=== PATIENT | male | born 1970 | race African-American/Black ===

== ENCOUNTER 2017-10-24 20:46 | Emergency (ER) | payer SELFPAY ==
[~2017-10-24] VITALS: Ht 190.5 cm; Wt 145.1 kg
[2017-10-24] MEDS ORDERED: ACETAMINOPHEN/CODEINE 300MG - 30MG TAB PO ONE (22:00)
--- NOTE | 2017-10-25 00:01 | Diagnostic Imaging Report ---
EXAM: ELBOW LEFT COMPLETE, AP, lateral and oblique INDICATION: Fall, left elbow pain COMPARISON: None FINDINGS: BONES: No acute fractures. JOINTS: No malalignment. Mild degenerative changes of the elbow. SOFT TISSUES: Normal IMPRESSION: No left elbow fracture. Signed by: Dr. Beatrice Rodriguez M.D. on 10/24/2017 11:23 PM
--- NOTE | 2017-10-25 00:01 | Diagnostic Imaging Report ---
EXAM: SHOULDER RIGHT COMPLETE, AP internal and external rotation INDICATION: Right shoulder pain after fall COMPARISON: None FINDINGS: BONES: No acute fractures. Incidental normal variant of prominent conoid tubercle of the clavicle. JOINTS: No malalignment. Degenerative changes of the acromioclavicular joint. SOFT TISSUES: Normal IMPRESSION: No acute fracture or dislocation of the right shoulder. Signed by: Dr. Beatrice Rodriguez M.D. on 10/24/2017 11:22 PM
== END 2017-10-24 23:52 | disposition home or self-care (01) ==
LOC: ER 20:46
DX: S43.421A Sprain of right rotator cuff capsule, initial encounter (principal); S50.02XA Contusion of left elbow, initial encounter; W06.XXXA Fall from bed, initial encounter; Y93.84 Activity, sleeping; Y92.003 Bedroom of unspecified non-institutional (private) residence as the place of occurrence of the external cause; I10 Essential (primary) hypertension

== ENCOUNTER 2018-02-09 21:34 | Inpatient (IN) | payer SELFPAY ==
[~2018-02-09] VITALS: Ht 190.5 cm; Wt 145.1 kg
--- OUTSIDE RECORDS SUMMARY | 2018-02-09 21:37 | XMS REPORT ---
Author [facility] Address Unknown Phone Unavailable Care Team Providers Care [employer] Crewmember Name Role Phone Kinsey BARRAZA Unavailable Unavailable Problems This patient has no known problems. Allergies, Adverse Reactions, Alerts This patient has no known allergies or adverse reactions. Medications This patient has no known medications. Results Test Description Test Time Test Comments Text Results Atomic Results Result Comments ELBOW LEFT COMPLETE 2017-10-24 23:22:00 [place] [address] Patient Name: NILO MINOR MR #: [id number] : 1970 Age/Sex: 47/M Req #: [id number] Adm Physician: Ordered by: MARIAM BARRAZA MD Report #: [id number] Location: ER Room/Bed: Procedure: [id number] DX/ELBOW LEFT COMPLETE Exam Date: 10/24/17 Exam Time: 5 REPORT STATUS: Signed EXAM: ELBOW LEFT COMPLETE, AP, lateral and oblique INDICATION: Fall, left elbow pain COMPARISON: None FINDINGS: BONES: No acute fractures. JOINTS: No malalignment. Mild degenerative changes of the elbow. SOFT TISSUES: Normal IMPRESSION: No left elbow fracture. Signed by: Dr. Quang Tucker M.D. on 10/24/2017 11:23 PM Dictated By: QUANG TUCKER MD [id number] Transcribed By: VISH on 10/24/172322 COPY TO: MARIAM BARRAZA MD SHOULDER RIGHT COMPLETE 2017-10-24 23:16:00 [place] [address] Patient Name: NILO MINOR MR #: [id number] : 1970 Age/Sex: 47/M Req #: [id number] Adm Physician: Ordered by: MARIAM BARRAZA MD Report #: [id number] Location: ER Room/Bed: Procedure: [id number] DX/SHOULDER RIGHT COMPLETE Exam Date: 10/24/17 Exam Time: 2244 REPORT STATUS: Signed EXAM: SHOULDER RIGHT COMPLETE, AP internal and external rotation INDICATION: Right shoulder pain after fall COMPARISON: None FINDINGS: BONES: No acute fractures. Incidental normal variant of prominent conoid tubercle of the clavicle. JOINTS: No malalignment. Degenerative changes of the acromioclavicular joint. SOFT TISSUES: Normal IMPRESSION: No acute fracture or dislocation of the right shoulder. Signed by: Dr. Quang Tucker M.D. on 10/24/2017 11:22 PM Dictated By: QUANG TUCKER MD 21 Transcribed By: VISH on 10/24/172321 COPY TO: MARIAM BARRAZA MD
[2018-02-09] MEDS ORDERED: HYDRALAZINE HCL 20 MG/ML VIAL IV STA (22:02)
--- NOTE | 2018-02-09 22:41 | Diagnostic Imaging Report ---
EXAMINATION: CHEST SINGLE (PORTABLE) INDICATION: SOB, LE EDEMA COMPARISON: None FINDINGS: AP view TUBES and LINES: None. LUNGS: Lungs are well inflated. Interstitial opacities extending from the karen to the periphery. No focal consolidations. PLEURA: No significant pleural effusion. No pneumothorax. HEART AND MEDIASTINUM: Mild to moderate enlargement of the cardiac silhouette. BONES AND SOFT TISSUES: No acute osseous lesion. Soft tissues are unremarkable. UPPER ABDOMEN: No free air under the diaphragm. IMPRESSION: Cardiomegaly with mild interstitial edema. Signed by: DR. Robert Valle MD on 02/09/2018 10:38 PM
[2018-02-09 22:52] LABS: BASOPHILS % 0.6 % (0.0-1.0); EOSINOPHILS # (AUTO) 0.1 (0.0-0.4); EOSINOPHILS % 0.7 % (0.0-6.0); HEMATOCRIT 36.8 % (38.2-49.6); HEMOGLOBIN 10.9 g/dL (14.0-18.0); LYMPHOCYTES # (AUTO) 1.4 (1.0-3.2); LYMPHOCYTES % 19.2 % (18.0-39.1); MEAN CORPUSCULAR HEMOGLOBIN 24.5 pg (28-32); MEAN CORPUSCULAR HGB CONC 29.6 g/dL (31-35); MEAN CORPUSCULAR VOLUME 82.7 fL (81-99); MONOCYTES # (AUTO) 0.8 (0.2-0.8); MONOCYTES % 11.1 % (4.4-11.3); NEUTROPHILS # (AUTO) 4.8 (2.1-6.9); NEUTROPHILS % 68.1 % (38.7-80.0); PLATELET COUNT 299 x10e3/uL (140-360); RED BLOOD COUNT 4.45 x10e6/uL (4.3-5.7); RED CELL DISTRIBUTION WIDTH 20.2 % (11.7-14.4)
[2018-02-09 23:02] LABS: INR 1.3; PARTIAL THROMBOPLASTIN TIME 34.6 seconds (23.8-35.5); PROTHROMBIN TIME 17.3 seconds (11.9-14.5)
[2018-02-09 23:14] LABS: ALANINE AMINOTRANSFERASE 22 IU/L (0-55); ALBUMIN 2.5 g/dL (3.5-5.0); ALBUMIN/GLOBULIN RATIO 0.4 (0.8-2.0); ALKALINE PHOSPHATASE 162 IU/L (40-150); ANION GAP 13.8 mmol/L (8-16); BLOOD UREA NITROGEN 16 mg/dL (7-26); BUN/CREATININE RATIO 12 (6-25); CALCIUM 8.9 mg/dL (8.4-10.2); CARBON DIOXIDE 24 mmol/L (22-29); CHLORIDE 101 mmol/L (98-107); CREATINE KINASE 447 IU/L (30-200); CREATININE, SERUM 1.31 mg/dL (0.72-1.25); EST GLOMERULAR FILTRATION RATE > 60 ML/MIN (60-); GLUCOSE 89 mg/dL (74-118); MAGNESIUM 1.6 MG/DL (1.3-2.1); POTASSIUM 3.8 mmol/L (3.5-5.1); SODIUM 135 mmol/L (136-145)
[2018-02-09] MEDS ORDERED: FUROSEMIDE INJ 10 MG/ML 4 ML VIAL IV ONE (23:30)
[2018-02-10] MEDS ORDERED: HYDROCODONE/APAP 10MG-325MG TAB PO ONE
[2018-02-10] MEDS: NITROGLYCERIN 2% OINT 1 GM PKT TOP SCH ×4 (00:10→18:29)
[2018-02-10 00:53] LABS: BILIRUBIN,URINE 1+ (NEGATIVE); CLARITY,URINE SL CLOUDY (CLEAR); COLOR,URINE YELLOW (YELLOW); KETONES,URINE NEGATIVE (NEGATIVE); LEUKOCYTE ESTERASE ,URINE NEGATIVE (NEGATIVE); NITRITE,URINE NEGATIVE (NEGATIVE); PROTEIN,URINE DIPSTICK 2+ (NEGATIVE); URINE UROBILINOGEN 1 mg/dL (0.2 - 1)
[2018-02-10 00:54] LABS: BACTERIA,URINE MANY /HPF; EPITHELIAL CELLS,URINE FEW /LPF; HYALINE CASTS 0-1 (0-1); MUCUS,URINE FEW (RARE); WBC,URINE (MAN) 21-50 /HPF (0-5)
[2018-02-10] MEDS ORDERED: HYDRALAZINE HCL 20 MG/ML VIAL IV PRN (01:30)
[2018-02-10] MEDS ORDERED: MORPHINE SULFATE 2 MG/ML SYR IV PRN (01:30)
[2018-02-10] MEDS ORDERED: ASPIRIN 81 MG CHEW TAB PO ONE ×2 (01:30)
[2018-02-10] MEDS ORDERED: ONDANSETRON HCL INJ 2 MG/ML VIAL IV PRN (01:30)
[2018-02-10] MEDS ORDERED: CEFTRIAXONE SOD 1 GM VIAL IV SCH (02:00)
[2018-02-10] MEDS ORDERED: CEFTRIAXONE SOD 1 GM VIAL ONE (04:16)
--- NOTE | 2018-02-10 05:49 | History and Physical ---
Patient is a 47-year-old noncompliant obese gentleman who presents with shortness of breath, and was found to have hypertensive crisis, as well as new-onset CHF. He has an elevated BNP and pulmonary edema on chest x-ray. Currently, the patient states he is feeling better. He denies any chest pains. PAST MEDICAL HISTORY: Hypertension. MEDICATIONS: See MAR. ALLERGIES: TRAMADOL. SOCIAL HISTORY: Lives at home with his . Nonsmoker and nondrinker. FAMILY HISTORY: Hypertension. PHYSICAL EXAMINATION VITALS: 98.6, blood pressure of 156/90, pulse of 78, sats 99%. GENERAL: No apparent distress. Sitting up in bed. NECK: Supple. CARDIOVASCULAR: Regular rate and rhythm. LUNGS: Decreased breath sounds bilaterally. No wheezing or rhonchi. ABDOMEN: Obese, soft and nontender. EXTREMITIES: No clubbing or cyanosis. NEUROLOGICAL: Nonfocal. ASSESSMENT AND PLAN 1. Hypertensive crisis: Will continue with blood pressure medicines since the patient is doing better. 2. Urinary tract infection: Will continue Rocephin. Check cultures. 3. Congestive heart failure: Will do an echocardiogram and consult cardiology. Please see hospital chart for full details. Job#: [id number] CHICO
[2018-02-10 06:57] LABS: BASOPHILS % 0.3 % (0.0-1.0); EOSINOPHILS # (AUTO) 0.1 (0.0-0.4); EOSINOPHILS % 1.5 % (0.0-6.0); HEMATOCRIT 35.9 % (38.2-49.6); HEMOGLOBIN 10.7 g/dL (14.0-18.0); LYMPHOCYTES # (AUTO) 1.4 (1.0-3.2); LYMPHOCYTES % 22.9 % (18.0-39.1); MEAN CORPUSCULAR HEMOGLOBIN 24.8 pg (28-32); MEAN CORPUSCULAR HGB CONC 29.8 g/dL (31-35); MEAN CORPUSCULAR VOLUME 83.1 fL (81-99); MONOCYTES # (AUTO) 0.8 (0.2-0.8); MONOCYTES % 12.5 % (4.4-11.3); NEUTROPHILS # (AUTO) 3.8 (2.1-6.9); NEUTROPHILS % 62.5 % (38.7-80.0); PLATELET COUNT 295 x10e3/uL (140-360); RED BLOOD COUNT 4.32 x10e6/uL (4.3-5.7); RED CELL DISTRIBUTION WIDTH 20.2 % (11.7-14.4)
[2018-02-10 07:32] LABS: ALANINE AMINOTRANSFERASE 21 IU/L (0-55); ALBUMIN 2.3 g/dL (3.5-5.0); ALBUMIN/GLOBULIN RATIO 0.4 (0.8-2.0); ALKALINE PHOSPHATASE 147 IU/L (40-150); ANION GAP 12.4 mmol/L (8-16); BLOOD UREA NITROGEN 14 mg/dL (7-26); BUN/CREATININE RATIO 12 (6-25); CALCIUM 8.7 mg/dL (8.4-10.2); CARBON DIOXIDE 26 mmol/L (22-29); CHLORIDE 100 mmol/L (98-107); CREATININE, SERUM 1.15 mg/dL (0.72-1.25); EST GLOMERULAR FILTRATION RATE > 60 ML/MIN (60-); GLUCOSE 80 mg/dL (74-118); POTASSIUM 3.4 mmol/L (3.5-5.1); SODIUM 135 mmol/L (136-145)
[2018-02-10 07:39] LABS: CREATINE KINASE MB 4.7 ng/mL (0-5.0)
[2018-02-10] MEDS ORDERED: METOPROLOL TARTRATE 25 MG TAB PO SCH (08:00)
[2018-02-10] MEDS: FAMOTIDINE 20 MG/2 ML VIAL IV SCH ×2 (08:45→20:04)
[2018-02-10] MEDS: ASPIRIN 81 MG ENTERIC COATED PO SCH (08:45)
[2018-02-10] MEDS: CEFTRIAXONE SOD 1 GM/NS 50 ML 50 ML IV SCH (14:35)
[2018-02-10 15:41] LABS: CREATINE KINASE MB 4.7 ng/mL (0-5.0)
--- NOTE | 2018-02-10 15:46 | Consultation ---
DATE OF CONSULTATION: February 10, 2018 CARDIOLOGY CONSULTATION REASON FOR CONSULTATION: Heart failure. HISTORY OF PRESENT ILLNESS: This is a 47-year-old man with a history of hypertension, noncompliant with medications, and obesity, who presented to the emergency department with progressive worsening shortness of breath. The patient states over the last few weeks he has noticed he is more short of breath and unable to lay flat. He reports progressive lower extremity swelling, which has progressed into his scrotum and up to his thighs. Upon arrival here, the patient was noted to have pulmonary edema and an elevated BNP. He was started on Lasix. Echocardiogram shows a left ventricular ejection fraction of less than 20%. REVIEW OF SYSTEMS: A 12-point review of systems was conducted and discussed above in the HPI. PAST MEDICAL HISTORY: Hypertension, obesity, prior tobacco use. MEDICATIONS: See medication reconciliation form. PAST SURGICAL HISTORY: None recently reported. FAMILY HISTORY: No premature coronary artery disease or sudden cardiac . SOCIAL HISTORY: No current illicit drug use, alcohol use or tobacco use. ALLERGIES: TRAMADOL. PHYSICAL EXAMINATION VITAL SIGNS: 98.7, heart rate 71, respirations 18, blood pressure 134/84, oxygen saturation is 98% on room air. GENERAL: He is a well-appearing, obese male seated at the bedside. HEENT: Head is normocephalic and atraumatic. Eyes: Extraocular movements are intact. Conjunctivae are clear. NECK: No JVD. No bruits. CARDIOVASCULAR: Regular rate and rhythm. LUNGS: Diminished breath sounds at bilateral bases. Scattered rales. ABDOMEN: Obese, soft and nontender. EXTREMITIES: There is tense pitting edema up to the midthigh level with scrotal edema. VASCULAR: Diminished pulses. SKIN: Warm, dry and intact. NEUROLOGIC: No focal deficits noted. Cranial nerves are grossly intact. PSYCHIATRIC: Normal mood and affect. MEDICATIONS: Reviewed. LABORATORY DATA: Reviewed. Hemoglobin 10.7. Sodium 135, potassium 3.4, creatinine 1.15. Troponin is negative times 2. BNP is 1261. Chest x-ray shows cardiomegaly with mild interstitial pulmonary edema. IMPRESSION 1. Acute likely on chronic systolic congestive heart failure. 2. Hypertension. 3. Obesity. 4. Urinary tract infection. RECOMMENDATIONS: This patient was found to have severe reduction in his left ventricular systolic function with an estimated ejection fraction of less than 20%. Will increase Lasix to 40 mg IV q.[address] him on optimal medical therapy for his heart failure with carvedilol and lisinopril. The patient likely will benefit from Aldactone as well. May consider coronary angiography to evaluate for ischemic causes for his congestive heart failure. Will continue to monitor. Job#: [id number] RI
[2018-02-10] MEDS: CARVEDILOL 12.5 MG TAB PO SCH (15:51)
[2018-02-10] MEDS: FUROSEMIDE INJ 10 MG/ML 4 ML VIAL IV SCH (15:52)
[2018-02-10] MEDS ORDERED: MAGNESIUM OTC PO (17:33)
[2018-02-10] MEDS ORDERED: POTASSIUM OTC PO (17:33)
[2018-02-10 18:11] VITALS: BP 137/91
[2018-02-10 18:13] VITALS: BP 137/91
--- NOTE | 2018-02-10 18:24 | NUR ---
Received patient from ER, alert and responsive, sleepy, states he is tired as has not been able to sleep well while in the ER, VSS, some SOB on exertion, skin intact, by bedside, place on O2 2L protocol, no resp distress, oriented to room, call light within reach, denies any pains, will monitor
--- NOTE | 2018-02-10 19:06 | NUR ---
Patient alert and ambulatory in the room, offered O2 2L NC but patient refused, report given to on coming nurse and rounds completed.
--- NOTE | 2018-02-10 19:07 | NUR ---
received patient ambulating in room, stable condition. no needs voiced at this time. encouraged to call for help. will continue to monitor patient.
[2018-02-10] MEDS: MORPHINE SULFATE INJ 4 MG/ML INJ IV PRN (19:55)
[2018-02-10 20:00] VITALS: BP 129/78
[2018-02-10] MEDS ORDERED: FUROSEMIDE INJ 10 MG/ML 4 ML VIAL IV SCH (21:00)
[2018-02-10 22:00] VITALS: BP 129/78
[2018-02-11] VITALS (8 sets, daily range): BP systolic 108–152; BP diastolic 66–97
[2018-02-11] MEDS: FUROSEMIDE INJ 10 MG/ML 4 ML VIAL IV SCH ×4 (00:31→17:47)
[2018-02-11] MEDS: NITROGLYCERIN 2% OINT 1 GM PKT TOP SCH ×4 (00:32→17:47)
[2018-02-11] MEDS: MORPHINE SULFATE INJ 4 MG/ML INJ IV PRN (00:38)
[2018-02-11] MEDS ORDERED: SODIUM CHLORIDE 0.9% 100 ML 100 ML ONE (02:11)
[2018-02-11] MEDS: CEFTRIAXONE SOD 1 GM/NS 50 ML 50 ML IV SCH ×2 (02:20→14:38)
[2018-02-11 06:07] LABS: CHOL/HDL RATIO 3.1 (3.9-4.7)
[2018-02-11 06:24] LABS: ANION GAP 12.7 mmol/L (8-16); BLOOD UREA NITROGEN 15 mg/dL (7-26); BUN/CREATININE RATIO 13 (6-25); CALCIUM 8.5 mg/dL (8.4-10.2); CARBON DIOXIDE 27 mmol/L (22-29); CHLORIDE 102 mmol/L (98-107); CREATININE, SERUM 1.17 mg/dL (0.72-1.25); EST GLOMERULAR FILTRATION RATE > 60 ML/MIN (60-); GLUCOSE 83 mg/dL (74-118); POTASSIUM 3.7 mmol/L (3.5-5.1); SODIUM 138 mmol/L (136-145)
--- NOTE | 2018-02-11 07:05 | Progress Note ---
DATE: SUBJECTIVE: Patient is admitted for acute congestive heart failure. Patient currently has no shortness of breath, no chest pain, no orthopnea, and no PND. Sitting up , complains of lower extremity edema. MEDICATIONS: Rocephin 1 g, morphine sulfate 2 mg q.3h. p.r.n., nitroglycerin 1 gram q.6h. topical, Lasix 40 mg q.6h. IV, famotidine 20 mg, carvedilol 6.25 mg, aspirin 81 mg, lisinopril 10, mg, potassium 40 mEq, hydralazine 10 mg, and ondansetron 4 mg. OBJECTIVE VITAL SIGNS: Today, temperature is 97.9, pulse of 86, blood pressure is 134/87, and pulse ox is 98%. GENERAL: Patient is alert and oriented x3. HEENT: Normocephalic, atraumatic. Pupils are reactive to light and accommodation. CV: S1 and S2 regular. S3 present. LUNGS: Positive for crackles in lower bases. ABDOMEN: Nontender and nondistended. EXTREMITIES: Positive for dense edema present in the lower extremities. IMAGING STUDIES: Chest x-ray from the admission day shows cardiomegaly with mild interstitial edema. Patient's echocardiogram shows an EF of less than 20%. LABORATORY VALUES: From yesterday, hemoglobin of 10.7 and hematocrit of 35.9. Chemistries, sodium of 135, potassium is 3.4, total bilirubin 2.9, and albumin and globulin 2.3 and 6.2. CK, CK-MB, and troponin has been trended negative. ASSESSMENT: A 47-year-old -Japanese male with: 1. Acute, likely on chronic, congestive heart failure: Continue with diuresis. Check his electrolytes on a daily basis. 2. Hypertension: Continue with antihypertensive agents including lisinopril, beta blockade, and Aldactone. Lasix has been increased to 40 mg IV q.6h. 3. Obesity: Patient is to restrain from fatty food and low salt diet. 4. Urinary tract infection: We will continue on ceftriaxone. Waiting for microbiology results, which are pending. 5. Strict diet has been advocated to the patient. Smoking cessation has been advocated to the patient. We will continue on diuresis, and she will be kept on with daily monitoring. We will go ahead and add Aldactone 25 mg today to her regimen. Job#: [id number] ANGELICA
[2018-02-11] MEDS: CARVEDILOL 12.5 MG TAB PO SCH ×2 (08:56→17:47)
[2018-02-11] MEDS: SPIRONOLACTONE 25 MG TAB PO SCH (08:56)
[2018-02-11] MEDS: FAMOTIDINE 20 MG/2 ML VIAL IV SCH ×2 (08:56→20:34)
[2018-02-11] MEDS: ASPIRIN 81 MG ENTERIC COATED PO SCH (08:56)
[2018-02-11] MEDS: POTASSIUM CHLORIDE 20 MEQ TAB CR PO SCH (08:57)
[2018-02-11] MEDS: LISINOPRIL 10 MG TAB PO SCH (08:57)
--- NOTE | 2018-02-11 10:20 | NUR ---
Yard Loader Operator to bedside to discuss plan of care with patient/family. CM/SW role and care transitions discussed. Anticipated discharge plan discussed along with duration of care. CM/SW discussed patients right to make decisions in care. CM/SW work hours given. Patient lives: with his cousin and/or his kids' mother on and off Admit/Transfer: thru ED, from home POA/Emergency contact: Missy Wilkins (his kids' mother) [phone] Current/Previous Home Health: none PCP/Follow-up Care: none Current/Previous DME: none; pt is independent, drives Other Services: none Employment Status: unemployed Areas of Concerns: noncompliance with medical management Referral Needs: pt is self-pay, does not have pcp. self pay packet given to pt with [facility] information if pt chooses to follow up. $4 rx list for [facility] placed in front of chart for MD to use. Education Needs: medical management IMM/MATUTE given and signed (if applicable): n/a Goal for discharge: home, Ms. Wilkins will provide transportation. CM/SW left business card at the bedside with contact information. Name and number was also written on the patients whiteboard. Patient verbalized understanding of discussion. CM will follow-up with ongoing discharge and transition of care needs.
--- NOTE | 2018-02-11 19:05 | NUR ---
received patient ambulating in room, aaox3, stable condition. no s/s of distress observed. family members at bedside. bed locked and in lowest position, call light within easy reach.
--- NOTE | 2018-02-11 20:35 | Progress Note ---
DATE: February 11, 2018 CARDIOLOGY PROGRESS NOTE SUBJECTIVE: No major events overnight. Feels better. OBJECTIVE VITAL SIGNS: Temperature afebrile, pulse 84, respiratory rate 20, blood pressure 118/76, satting 97% on room air. GENERAL: Obese man, no acute distress. CARDIOVASCULAR: Difficult exam due to obesity. Regular rate and rhythm. No murmurs, rubs, or gallops. Could not assess JVD due to obesity. Palpable carotid pulses. Palpable radial pulses. LUNGS: Diminished breath sounds bilateral bases. ABDOMEN: Obese, soft, nontender. NEURO AND PSYCH: Alert and oriented to person, place, and time. MEDICATIONS: Reviewed. LABORATORY DATA: Reviewed. ASSESSMENT 1. Awbsf-vd-rfnetqh systolic heart failure. 2. Hypertension. 3. Obesity. 4. Urinary tract infection. RECOMMENDATIONS: Echocardiogram shows EF less than 20%. Continue IV diuretics. Continue carvedilol and lisinopril. Ischemic evaluation when patient is euvolemic. Thank you for this consult. We will continue to follow. Job#: [id number] NUSRAT
--- NOTE | 2018-02-11 20:55 | NUR ---
patient c/o of cramping to hands and BUE. orders received for K+ redraw. patient refusing lab, "afraid of needles and will wait until morning labs". PRESIDENT [employer] MARKET[employer] Allison in room to attempt to draw lab.
[2018-02-12] VITALS (7 sets, daily range): BP systolic 116–138; BP diastolic 62–76
[2018-02-12] MEDS: FUROSEMIDE INJ 10 MG/ML 4 ML VIAL IV SCH ×4 (01:00→17:40)
[2018-02-12] MEDS: NITROGLYCERIN 2% OINT 1 GM PKT TOP SCH ×4 (01:00→17:40)
[2018-02-12] MEDS: CEFTRIAXONE SOD 1 GM/NS 50 ML 50 ML IV SCH ×2 (01:23→14:00)
--- NOTE | 2018-02-12 07:10 | NUR ---
Pt rec'd during walking report rounds. AOx3, able to verbalize needs. NAD observed at this time.
--- NOTE | 2018-02-12 07:49 | Progress Note ---
DATE: SUBJECTIVE: Patient is here for congestive heart failure. Currently, patient is asymptomatic; however, complains of swelling in the lower extremities, which has been present for long time. Patient also complains of cramping in the upper extremities and also lower extremities. Potassium was checked yesterday. Currently, no chest pain, no shortness of breath. OBJECTIVE VITAL SIGNS: Temperature is 97.9, pulse of 86, respirations of 22, blood pressure is 135/66, and pulse oximetry 98% on room air. HEENT: Normocephalic, atraumatic. Pupils are reactive to light and accommodation. CVS: S1 and S2 are normal. Regular rate and rhythm. ABDOMEN: Nontender, nondistended. EXTREMITIES: 2+ edema. LABORATORY VALUES: Done yesterday show sodium of 138, potassium of 3.7, chloride of 102, and BUN was 15, creatinine of 1.17. Patient's total bili was 2.9. LDL was 37. Urine culture preliminary showed no growth in 18 to 24 hours. ASSESSMENT AND PLAN 1. Acute, likely on chronic, congestive heart failure. Continue with diuresis. Electrolytes were checked. Patient's creatinine is normal and the sodium and potassium are normal. 2. Hypertension. Continue on beta blockade, lisinopril and Aldactone. 3. Obesity with probable obstructive sleep apnea. Will need an outpatient study of obstructive sleep apnea. 4. Urinary tract infection. Continue on ceftriaxone, although urine cultures have been negative. Patient is a smoker: Smoking cessation has been advised and patient has been added on Aldactone 25 mg too. Further recommendations per clinical course, and also patient needs an ischemic heart workup once patient is euvolemic. Job#: [id number] ANGELICA
--- NOTE | 2018-02-12 08:24 | Progress Note ---
DATE: February 12, 2018 CARDIOLOGY PROGRESS NOTE SUBJECTIVE: No major events overnight. OBJECTIVE VITAL SIGNS: Temperature 97.1, pulse 86, respiratory rate 22, blood pressure 116/76, and satting 95% on room air. GENERAL: Obese man, no acute distress. CARDIOVASCULAR: Difficult exam due to obesity. Regular rate and rhythm. No murmurs, rubs, or gallops. Could not assess JVD due to obesity. Palpable carotid pulses. Palpable radial pulses. LUNGS: Diminished breath sounds in bilateral bases. ABDOMEN: Obese, soft, nontender. NEURO AND PSYCH: Alert and oriented to person, place, and time. Normal affect. INPATIENT MEDICATIONS: Reviewed. LABORATORY DATA: Reviewed. TELEMETRY DATA: Reviewed, shows normal sinus rhythm. ASSESSMENT 1. Okxrf-yg-hgdoekd systolic heart failure. 2. Hypertension. 3. Obesity. 4. Urinary tract infection. RECOMMENDATIONS: Continue IV diuretics, still volume overloaded. Echo shows EF less than 20%. No prior ischemic workup. Continue carvedilol and lisinopril. Ischemic evaluation once patient is euvolemic. Thank you for this consult. We will continue to follow. Job#: [id number] PSO
[2018-02-12] MEDS: ASPIRIN 81 MG ENTERIC COATED PO SCH (08:30)
[2018-02-12] MEDS: FAMOTIDINE 20 MG/2 ML VIAL IV SCH ×2 (08:30→21:09)
[2018-02-12] MEDS: SPIRONOLACTONE 25 MG TAB PO SCH (08:30)
[2018-02-12] MEDS: CARVEDILOL 12.5 MG TAB PO SCH ×2 (08:30→17:40)
[2018-02-12] MEDS: LISINOPRIL 10 MG TAB PO SCH (08:30)
[2018-02-12] MEDS: POTASSIUM CHLORIDE 20 MEQ TAB CR PO SCH (08:30)
[2018-02-12 17:33] LABS: ANION GAP 17.9 mmol/L (8-16); BLOOD UREA NITROGEN 16 mg/dL (7-26); BUN/CREATININE RATIO 13 (6-25); CALCIUM 8.7 mg/dL (8.4-10.2); CARBON DIOXIDE 24 mmol/L (22-29); CHLORIDE 99 mmol/L (98-107); CREATININE, SERUM 1.21 mg/dL (0.72-1.25); EST GLOMERULAR FILTRATION RATE > 60 ML/MIN (60-); GLUCOSE 84 mg/dL (74-118); POTASSIUM 3.9 mmol/L (3.5-5.1); SODIUM 137 mmol/L (136-145)
[2018-02-12 17:45] LABS: BASOPHILS % 0.6 % (0.0-1.0); EOSINOPHILS # (AUTO) 0.1 (0.0-0.4); EOSINOPHILS % 1.5 % (0.0-6.0); HEMATOCRIT 36.6 % (38.2-49.6); HEMOGLOBIN 10.8 g/dL (14.0-18.0); LYMPHOCYTES # (AUTO) 1.3 (1.0-3.2); LYMPHOCYTES % 23.9 % (18.0-39.1); MEAN CORPUSCULAR HEMOGLOBIN 24.5 pg (28-32); MEAN CORPUSCULAR HGB CONC 29.5 g/dL (31-35); MEAN CORPUSCULAR VOLUME 83.2 fL (81-99); MONOCYTES # (AUTO) 0.7 (0.2-0.8); MONOCYTES % 12.5 % (4.4-11.3); NEUTROPHILS # (AUTO) 3.3 (2.1-6.9); NEUTROPHILS % 61.1 % (38.7-80.0); PLATELET COUNT 264 x10e3/uL (140-360); RED CELL DISTRIBUTION WIDTH 20.1 % (11.7-14.4)
[2018-02-13] VITALS (8 sets, daily range): BP systolic 103–137; BP diastolic 51–75
[2018-02-13] MEDS: NITROGLYCERIN 2% OINT 1 GM PKT TOP SCH ×4 (00:50→18:00)
[2018-02-13] MEDS: FUROSEMIDE INJ 10 MG/ML 4 ML VIAL IV SCH ×4 (00:50→18:00)
[2018-02-13] MEDS: CEFTRIAXONE SOD 1 GM/NS 50 ML 50 ML IV SCH ×2 (01:53→13:26)
[2018-02-13 05:57] LABS: BASOPHILS % 0.5 % (0.0-1.0); EOSINOPHILS # (AUTO) 0.1 (0.0-0.4); EOSINOPHILS % 1.9 % (0.0-6.0); HEMATOCRIT 34.6 % (38.2-49.6); HEMOGLOBIN 10.6 g/dL (14.0-18.0); LYMPHOCYTES # (AUTO) 1.5 (1.0-3.2); LYMPHOCYTES % 25.7 % (18.0-39.1); MEAN CORPUSCULAR HEMOGLOBIN 24.7 pg (28-32); MEAN CORPUSCULAR HGB CONC 30.6 g/dL (31-35); MEAN CORPUSCULAR VOLUME 80.5 fL (81-99); MONOCYTES # (AUTO) 0.8 (0.2-0.8); MONOCYTES % 14.4 % (4.4-11.3); NEUTROPHILS # (AUTO) 3.2 (2.1-6.9); PLATELET COUNT 241 x10e3/uL (140-360); RED CELL DISTRIBUTION WIDTH 20.2 % (11.7-14.4)
[2018-02-13 06:11] LABS: ANION GAP 12.5 mmol/L (8-16); BLOOD UREA NITROGEN 16 mg/dL (7-26); BUN/CREATININE RATIO 13 (6-25); CALCIUM 8.4 mg/dL (8.4-10.2); CARBON DIOXIDE 29 mmol/L (22-29); CHLORIDE 99 mmol/L (98-107); CREATININE, SERUM 1.23 mg/dL (0.72-1.25); EST GLOMERULAR FILTRATION RATE > 60 ML/MIN (60-); GLUCOSE 95 mg/dL (74-118); POTASSIUM 3.5 mmol/L (3.5-5.1); SODIUM 137 mmol/L (136-145)
[2018-02-13] MEDS: CARVEDILOL 12.5 MG TAB PO SCH ×2 (09:30→20:35)
[2018-02-13] MEDS: FAMOTIDINE 20 MG/2 ML VIAL IV SCH ×2 (09:30→20:35)
[2018-02-13] MEDS: POTASSIUM CHLORIDE 20 MEQ TAB CR PO SCH (09:30)
[2018-02-13] MEDS: SPIRONOLACTONE 25 MG TAB PO SCH (09:30)
[2018-02-13] MEDS: LISINOPRIL 10 MG TAB PO SCH (09:30)
[2018-02-13] MEDS: ASPIRIN 81 MG ENTERIC COATED PO SCH (09:30)
--- NOTE | 2018-02-13 12:03 | NUR ---
AMBULATING IN HALLWAY, STEADY GAIT
--- NOTE | 2018-02-13 14:56 | NUR ---
SITTING ON SIDE OF BED, CALL LIGHT WITHIN REAC
--- NOTE | 2018-02-13 16:49 | Progress Note ---
DATE: SUBJECTIVE: Patient feels much better. Denies any shortness of breath, chest pain. OBJECTIVE VITAL SIGNS: Temperature is 97.9, heart rate is 86, respirations are 20, blood pressure is 120/75, oxygen saturation 97% on room air. GENERAL: No apparent distress. CARDIOVASCULAR: Regular rate and rhythm with ectopy. LUNGS: Diminished breath sounds at bilateral bases. ABDOMEN: Soft, nontender. EXTREMITIES: Edema. CARDIOVASCULAR MEDICATIONS: Reviewed. Telemetry monitoring revealed normal sinus rhythm with premature atrial complexes. LABORATORY DATA: Reviewed. IMPRESSION: 1. Okvoz-hf-gjrskle systolic congestive heart failure. 2. Hypertension. 3. Obesity. 4. Urinary tract infection. PLAN: Continue current cardiovascular medications. Continue with IV diuretics and monitor urinary outputs. Will order a coronary CTA to evaluate for any coronary disease as the patient wishes to have less invasive strategy. Job#: [id number] EV
--- NOTE | 2018-02-13 19:09 | NUR ---
WALKING ROUNDS PERFORMED, RECEIVED PT LAYING SEMI FOWLERS IN BED, AAOX3, RR EVEN AND NON-LABORED, ON RA. NO S/SX OF DISTRESS NOTED. LEFT PT LAYING SEMI FOWLERS IN BED, BED IN LOW LOCKED POSITION, SIDE RAILS UPX2, CALL LIGHT AND PHONE WITHIN REACH.
--- NOTE | 2018-02-13 19:45 | NUR ---
PT AMBULATING IN [place] WITH FAMILY AT SIDE. STEADY GAIT NOTED.
--- NOTE | 2018-02-13 20:40 | NUR ---
REPORT GIVEN TO Keaton SERVIN RN. WALKING ROUNDS PERFORMED, PT SITTING ON SIDE OF BED, AAOX3, RR EVEN AND NON-LABORED, ON RA. NO S/SX OF DISTRESS NOTED. LEFT PT SITTING ON SIDE OF BED, BED IN LOW LOCKED POSITION, SIDE RAILS UPX2, CALL LIGHT AND PHONE WITHIN REACH.
[2018-02-14] VITALS (8 sets, daily range): BP systolic 107–117; BP diastolic 58–69
--- NOTE | 2018-02-14 00:35 | NUR ---
Pt ambulating down the hallways. Denies any distress.
[2018-02-14] MEDS: CEFTRIAXONE SOD 1 GM/NS 50 ML 50 ML IV SCH ×2 (01:11→14:07)
[2018-02-14] MEDS: NITROGLYCERIN 2% OINT 1 GM PKT TOP SCH ×4 (01:11→18:00)
--- NOTE | 2018-02-14 04:34 | NUR ---
New IV started to right AC 18g. Per pt's request, removed IV to left ac.
[2018-02-14] MEDS: FUROSEMIDE INJ 10 MG/ML 4 ML VIAL IV SCH ×4 (06:00→18:00)
--- NOTE | 2018-02-14 07:40 | NUR ---
[place] [id number], STATES CTA WILL POSSIBLY BE CHANGED TO 0900 THIS AM, PT MADE AWARE, PT NOW NPO
--- NOTE | 2018-02-14 08:09 | NUR ---
SPOKE WITH NENA Ledesma RN, TIME MAY CHANGE FOR CTA, WILL KEEP PT NPO Addendum: 02/14/18 at 0816 by Naima Kimbrough RN STATED DO NOT GIVE AM MEDICATIONS DUE TO MD WILL ORDER METOPROLOL TO DECREASE HR FOR CTA
--- NOTE | 2018-02-14 08:19 | NUR ---
SPOKE WITH NENA Barrera, "PER DR GRAYSON, THE MD THAT ORDERED THE CTA WILL NEED TO MANAGE THE HR AND GET IT BELOW 65BPM", CTA POSSIBLE AT 11AM, TELEPHONED MD MACIAS, ORDERS NOTED
[2018-02-14] MEDS ORDERED: METOPROLOL TARTRATE INJ 1 MG/ML VIAL IV PRN (08:30)
[2018-02-14] MEDS: CARVEDILOL 12.5 MG TAB PO SCH ×2 (09:00→21:47)
[2018-02-14] MEDS ORDERED: CARVEDILOL 12.5 MG TAB PO NR (09:00)
[2018-02-14] MEDS: SPIRONOLACTONE 25 MG TAB PO SCH (09:00)
[2018-02-14] MEDS: POTASSIUM CHLORIDE 20 MEQ TAB CR PO SCH (09:00)
[2018-02-14] MEDS: LISINOPRIL 10 MG TAB PO SCH (09:00)
[2018-02-14] MEDS: ASPIRIN 81 MG ENTERIC COATED PO SCH (09:00)
[2018-02-14] MEDS: FAMOTIDINE 20 MG/2 ML VIAL IV SCH ×2 (09:00→21:47)
--- NOTE | 2018-02-14 10:39 | NUR ---
PT LYING IN BED, VOICES NO NEEDS AT THIS TIME, PER TELEMETRY PT SR @ 79BPM,
[2018-02-14] MEDS ORDERED: NITROGLYCERIN 0.4 MG SUBL ONE (12:13)
[2018-02-14] MEDS ORDERED: METOPROLOL TARTRATE INJ 1 MG/ML VIAL ONE (12:13)
--- NOTE | 2018-02-14 13:15 | NUR ---
BACK IN ROOM VIA BED, AWAKENS EASILY TO VOICE, REQUESTING HIS LUNCH, WM SET UP
[2018-02-14] MEDS ORDERED: SODIUM CHLORIDE 0.9% 100 ML 100 ML ONE (15:33)
[2018-02-14] MEDS ORDERED: IOPAMIDOL 370 MG/ML 200 ML INFUS..BTL INJ ONE (15:33)
--- NOTE | 2018-02-14 15:48 | Diagnostic Imaging Report ---
EXAM: CALCIUM SCORE AND CORONARY CTA INDICATION: ^HEART FAILURE, R/O CAD ^[id number] ^1300 COMPARISON: Chest radiograph 02/09/2018 TECHNIQUE: Multi-detector CT technology was employed ([address] 750 HD 64 MDCT [employer]). Minimal slice thickness was performed following the intravenous administration of contrast material. The patient was premedicated on the floor and then with 7.5 mg i.v. metoprolol on the scanner. No sublingual nitroglycerin was administered due to low blood pressure. IV CONTRAST: 175 mL of Isovue-370 ORAL CONTRAST: None COMPLICATIONS: None RADIATION DOSE: Total DLP: 3682 mGy*cm Estimated effective dose: (DLP x 0.015 x size factor) mSv CTDIvol has been reviewed. It is below the limits set by the Radiation Protocol Committee (RPC). For optimization of anatomic evaluation, multiplanar reconstruction, maximum intensity projections, and advanced 3-D off-line postprocessing were performed on a dedicated stand-alone workstation under the direct supervision of the interpreting physician. QUALITY: Poor contrast density in the coronary arteries despite 2 IV contrast injection with different delayed time and with consistent high concentration of contrast in the SVC which may relate to slow flow in the right upper extremity/SVC and low cardiac output. FINDINGS: CALCIUM SCORE: The observed Agatston Calcium Score of 223 is at percentile greater than 90% for subjects of the same age and gender who are free of clinical cardiovascular disease and treated diabetes. The Agatston score for each vessel is as follows: LM: 0 LAD: 177 LCx: 30.1 RCA: 15.8 DISTRIBUTION OF THE CALCIFIED PLAQUES: Mild scarring or calcified plaque throughout the LAD. CORONARY ANATOMY: There is normal origin of the coronary arteries. Left Main Coronary Artery: The left main is normal sized vessel that bifurcates into the LAD and circumflex. There is no evidence of atherosclerotic changes or stenotic disease. Left Anterior Descending Coronary Artery: The LAD is a normal size vessel that wraps around the apex. It gives rise to 2 acute diagonal branches. Mild scattered calcified plaques throughout the LAD worse in the proximal segment resulting in mild stenosis (25-49%). The distal segment is nondiagnostic due to poor contrast density. Left Circumflex Coronary Artery: The LCX is a normal size vessel, which is non-dominant. It gives rise to 2 obtuse marginal branches. There is no evidence of atherosclerotic changes or stenotic disease in the proximal and mid segments. The distal segment is nondiagnostic due to poor contrast density. Right Coronary Artery: The RCA is a normal size vessel, which is dominant. It gives rise to a conus branch, AV noelle branch, and 2 acute marginal branches. In its distal segment it bifurcates into the PDA and PV branch. There is no evidence of atherosclerotic changes or stenotic disease in the proximal and mid segments. The distal segment is nondiagnostic due to poor contrast density. CARDIAC MORPHOLOGY AND FUNCTION: Cardiomegaly. LIMITED CHEST: Few enlarged mediastinal lymph nodes, measuring up to 1.5 cm may be reactive. The main pulmonary arteries borderline in size measuring 3 cm in diameter. Linear scarring in the left lower lobe. Bilateral pulmonary edema. The visualized portions of the ascending and descending thoracic aorta are of normal size. LIMITED ABDOMEN: Limited images of the upper abdomen reveal no abnormalities of the visualized organs. BONES: No acute osseous abnormalities. IMPRESSION: 1. Total Agatston Calcium Score: 223 that corresponds to percentile greater than 90%, representing moderate plaque burden. 2. Suboptimal contrast density in the coronary arteries despite 2 IV injections with different delay time suggestive of slow flow throughout the injected right upper extremity/SVC and low cardiac output. 3. Normal coronary anatomy. 4. Mild scattered calcified plaques throughout the LAD worse in the proximal segment resulting in mild stenosis (25-49%). Patent proximal RCA and LCx without significant atherosclerotic disease. CAD-YOANNA 2N of the visualized coronary arteries. Distal branches are non diagnostic. Given limitations of the study, recommend correlate with Non invasive Stress Test if clinically indicated. Reference: [email or web address] Signed by: Dr. Stacey Smiley M.D. on 02/14/2018 3:45 PM
--- NOTE | 2018-02-14 16:31 | NUR ---
VOICES NO NEEDS AT THIS TIME, CALL LIGHT WITHIN REACH
--- NOTE | 2018-02-14 18:21 | NUR ---
MD MACIAS INTO SEE PT, DISCUSSED POC, STATES PT MAY DC TOMORROW
[2018-02-15] VITALS: BP 122/65
[2018-02-15] MEDS: FUROSEMIDE INJ 10 MG/ML 4 ML VIAL IV SCH ×2 (00:35→06:20)
[2018-02-15] MEDS: NITROGLYCERIN 2% OINT 1 GM PKT TOP SCH ×2 (00:35→06:21)
[2018-02-15] MEDS: CEFTRIAXONE SOD 1 GM/NS 50 ML 50 ML IV SCH (02:53)
[2018-02-15 04:00] VITALS: BP 124/69
[2018-02-15] MEDS ORDERED: LASIX40 MG PO (04:42)
[2018-02-15] MEDS ORDERED: LISINOPRIL10 MG PO (04:42)
[2018-02-15] MEDS ORDERED: SPIRONOLACTONE25 MG PO (04:42)
[2018-02-15] MEDS ORDERED: METOPROLOL TART25 MG PO (04:42)
[2018-02-15 08:13] VITALS: BP 120/69
== END 2018-02-15 10:23 | disposition home or self-care (01) | DRG 304 ==
LOC: ER 21:34 → ERHOLD 02-10 01:38 → MED/SURG 02-10 17:48 → OBSVTOIN 02-13 18:07
PROVIDERS: ADMIT Internal Medicine; ATTEND Internal Medicine
DX: I16.9 Hypertensive crisis, unspecified (principal); I50.23 Acute on chronic systolic (congestive) heart failure; Z68.41 Body mass index [BMI] 40.0-44.9, adult; N30.01 Acute cystitis with hematuria; I11.0 Hypertensive heart disease with heart failure; E66.9 Obesity, unspecified; Z91.14 Patient's other noncompliance with medication regimen; G47.33 Obstructive sleep apnea (adult) (pediatric); F17.210 Nicotine dependence, cigarettes, uncomplicated; Z82.49 Family history of ischemic heart disease and other diseases of the circulatory system; D64.9 Anemia, unspecified
CPT/HCPCS: 36415; 71045; 75574; 80048; 80053; 80061; 81001; 82550; 82553; 83735; 83880; 84132; 84484; 85025; 85610; 85730; 87086; 93005; 93306; 99284; G0378; J0696; J1940; J2270; Q9967

== ENCOUNTER 2018-04-08 14:39 | Emergency (ER) | payer SELFPAY ==
[~2018-04-08] VITALS: Ht 190.5 cm; Wt 123.8 kg
[~2018-04-08 14:39] MED LIST: LASIX40 MG PO; LISINOPRIL10 MG PO; MAGNESIUM OTC PO; METOPROLOL TART25 MG PO; POTASSIUM OTC PO; SPIRONOLACTONE25 MG PO
[2018-04-08] MEDS ORDERED: BELLADONNA ALK/PHENOBARBITAL 5 ML UDC PO NR (14:49)
[2018-04-08] MEDS ORDERED: PANTOPRAZOLE 40 MG 10ML VIAL IV NR (14:49)
[2018-04-08] MEDS ORDERED: LIDOCAINE VISC 2% SOLN 15 ML UDC PO NR (15:00)
[2018-04-08] MEDS ORDERED: MAGNESIUM/ALUMINUM/SIMETHICONE 30 ML UDC PO NR (15:00)
[2018-04-08 15:06] LABS: BASOPHILS % 0.6 % (0.0-1.0); EOSINOPHILS # (AUTO) 0.2 (0.0-0.4); HEMATOCRIT 46.7 % (38.2-49.6); HEMOGLOBIN 14.5 g/dL (14.0-18.0); LYMPHOCYTES # (AUTO) 1.5 (1.0-3.2); LYMPHOCYTES % 29.9 % (18.0-39.1); MEAN CORPUSCULAR HEMOGLOBIN 26.6 pg (28-32); MEAN CORPUSCULAR VOLUME 85.7 fL (81-99); MONOCYTES # (AUTO) 0.6 (0.2-0.8); NEUTROPHILS # (AUTO) 2.7 (2.1-6.9); NEUTROPHILS % 54.3 % (38.7-80.0); PLATELET COUNT 194 x10e3/uL (140-360); RED BLOOD COUNT 5.45 x10e6/uL (4.3-5.7); RED CELL DISTRIBUTION WIDTH 19.8 % (11.7-14.4)
[2018-04-08 15:22] LABS: BLOOD UREA NITROGEN 17 mg/dL (7-26); BUN/CREATININE RATIO 15 (6-25); CALCIUM 10.1 mg/dL (8.4-10.2); CARBON DIOXIDE 23 mmol/L (22-29); CHLORIDE 103 mmol/L (98-107); CREATINE KINASE 173 IU/L (30-200); EST GLOMERULAR FILTRATION RATE > 60 ML/MIN (60-); GLUCOSE 89 mg/dL (74-118); SODIUM 139 mmol/L (136-145)
--- NOTE | 2018-04-08 15:42 | Diagnostic Imaging Report ---
EXAMINATION: CHEST SINGLE (PORTABLE) INDICATION: Chest pain. COMPARISON: Cardiac CT 02/14/2018. FINDINGS: TUBES and LINES: None. LUNGS: Lungs are well inflated. Lungs are clear. There is no evidence of pneumonia or pulmonary edema. PLEURA: No pleural effusion or pneumothorax. HEART AND MEDIASTINUM: Mildly enlarged cardiomediastinal silhouette. BONES AND SOFT TISSUES: No acute osseous lesion. Soft tissues are unremarkable. UPPER ABDOMEN: No free air under the diaphragm. IMPRESSION: No acute radiographic abnormality. Mild cardiomegaly. Signed by: Dr. Gris Rangel MD on 04/08/2018 3:38 PM
[2018-04-08] MEDS ORDERED: ATORVASTATIN CA40 MG PO (15:55)
[2018-04-08] MEDS ORDERED: CARVEDILOL3.125 MG PO (15:55)
[2018-04-08 16:14] VITALS: BP 128/83
== END 2018-04-08 16:31 | disposition home or self-care (01) ==
LOC: ER 14:39
DX: R07.89 Other chest pain (principal); K21.0 Gastro-esophageal reflux disease with esophagitis; F41.1 Generalized anxiety disorder; I10 Essential (primary) hypertension; I25.10 Atherosclerotic heart disease of native coronary artery without angina pectoris; I50.9 Heart failure, unspecified
CPT/HCPCS: 36415; 71045; 80048; 82550; 82553; 83880; 84484; 85025; 93005; 99284; C9113

== ENCOUNTER 2019-05-09 17:51 | Emergency (ER) | payer SELFPAY ==
[~2019-05-09] VITALS: Ht 190.5 cm; Wt 123.8 kg
[~2019-05-09 17:51] MED LIST changes: +ATORVASTATIN CA40 MG PO; +CARVEDILOL3.125 MG PO
[2019-05-09 19:09] LABS: BASOPHILS % 0.3 % (0.0-1.0); EOSINOPHILS # (AUTO) 0.3 (0.0-0.4); EOSINOPHILS % 3.9 % (0.0-6.0); HEMATOCRIT 42.5 % (38.2-49.6); HEMOGLOBIN 13.6 g/dL (14.0-18.0); LYMPHOCYTES # (AUTO) 2.4 (1.0-3.2); LYMPHOCYTES % 33.7 % (18.0-39.1); MEAN CORPUSCULAR HEMOGLOBIN 30.8 pg (28-32); MEAN CORPUSCULAR VOLUME 96.4 fL (81-99); MONOCYTES # (AUTO) 0.6 (0.2-0.8); MONOCYTES % 8.5 % (4.4-11.3); NEUTROPHILS # (AUTO) 3.8 (2.1-6.9); NEUTROPHILS % 53.2 % (38.7-80.0); PLATELET COUNT 233 x10e3/uL (140-360); RED BLOOD COUNT 4.41 x10e6/uL (4.3-5.7); RED CELL DISTRIBUTION WIDTH 12.6 % (11.7-14.4)
[2019-05-09 19:13] LABS: INR 0.96; PROTHROMBIN TIME 13.4 seconds (11.9-14.5)
[2019-05-09 19:14] LABS: PARTIAL THROMBOPLASTIN TIME 30.6 seconds (23.8-35.5)
[2019-05-09 19:23] LABS: ALBUMIN 4.1 g/dL (3.5-5.0); CALCIUM 9.6 mg/dL (8.4-10.2); CREATININE, SERUM 1.54 mg/dL (0.72-1.25)
[2019-05-09 19:30] LABS: CREATINE KINASE MB 3.3 ng/mL (0-5.0)
[2019-05-09 19:36] LABS: MAGNESIUM 1.7 MG/DL (1.3-2.1)
--- NOTE | 2019-05-09 19:51 | Diagnostic Imaging Report ---
EXAMINATION: CHEST SINGLE (PORTABLE) COMPARISON: Chest x-ray 02/16/2019 INDICATION: Hypertension, CHF, chest pain ^CHEST PAIN ^[id number] ^1916 ^Y DISCUSSION: Frontal view of the chest obtained at 1918 hours. HEART AND MEDIASTINUM: The heart is mildly enlarged and stable. Pulmonary vasculature is normal LINES: None. LUNGS: The lungs are well inflated and clear. No pneumonia or pulmonary edema. PLEURA: No pleural effusion or pneumothorax. BONES AND SOFT TISSUES: No focal osseous lesion. The soft tissues are normal. IMPRESSION: Cardiomegaly without evidence of CHF. No acute pulmonary process. Signed by: Dr. Imtiaz Albarran MD on 05/09/2019 7:48 PM
[2019-05-09 19:56] LABS: THYROID STIMULATING HORMONE 0.809 uIU/mL (0.350-4.940)
--- NOTE | 2019-05-09 21:00 | NUR ---
PT BROUGHT TO RM 4 AT THIS TIME. PT PLACED ON BEDSIDE STORE STOCK HELP, SPO2, BP CUFF. PT DENIES CP OR SOB AT THIS TIME. NO ACUTE DISTRESS NOTED. RESP EVEN AND UNLABORED. BED IS LOCKED AND IN LOWEST POSITION. HEAD OF BED ELEVATED. X1 SIDE RAIL UP AND CALL LIGHT IN REACH IF IN NEED OF ASSISTANCE.
--- NOTE | 2019-05-09 21:05 | NUR ---
PT STATES HE TOOK HIS HS HOME MEDICATIONS. REPORTS TAKING 12.5MG COZAAR PO, X1 40MG ATORVASTATIN PO, X1 40MG LASIX, X1 3.125MG CARVEDILOL AT 2049 IN [facility]. Debbie RIVERA ENP NOTIFIED AND AWARE PT TOOK HOME MEDICATIONS.
--- NOTE | 2019-05-09 21:11 | NUR ---
BRANDY SANTIAGO AT BEDSIDE AT THIS TIME.
[2019-05-09 22:18] VITALS: BP 130/92
== END 2019-05-09 22:10 | disposition home or self-care (01) ==
LOC: ER 17:51
DX: R00.2 Palpitations (principal); F41.9 Anxiety disorder, unspecified; R42 Dizziness and giddiness; I49.3 Ventricular premature depolarization; I11.0 Hypertensive heart disease with heart failure; I50.9 Heart failure, unspecified; Z88.5 Allergy status to narcotic agent
CPT/HCPCS: 36415; 71045; 80053; 82550; 82553; 83735; 83880; 84443; 84484; 85025; 85610; 85730; 93005; 99284